=== PATIENT | female | born 1990 | race Caucasian/White ===

== ENCOUNTER 2020-04-04 14:02 | Emergency (ER) | payer SELFPAY ==
[~2020-04-04] VITALS: Ht 170.2 cm; Wt 99.8 kg
[2020-04-04 14:17] VITALS: BP 138/86; Ht 170.2 cm; Wt 99.8 kg
== END 2020-04-04 15:56 | disposition home or self-care (01) ==
LOC: ED 14:02
DX: L03.012 Cellulitis of left finger (principal); Z88.1 Allergy status to other antibiotic agents